=== PATIENT | female | born 1935 | race Caucasian/White ===

== ENCOUNTER 2016-10-07 13:35 | Observation (INO) | payer OTHER ==
[2016-10-07] MEDS ORDERED: ONDANSETRON HCL 4 MG/2 ML VIAL ONE ×2 (13:59→15:08)
[2016-10-07] MEDS ORDERED: HYDROmorphone HCL 1 MG/ML SYR ONE (14:16)
[2016-10-07] MEDS ORDERED: HOME MEDICATION LIST NEEDED 1 EA EACH MC ONE (14:31)
--- NOTE | 2016-10-07 14:36 | RADIOLOGY REPORT ---
HISTORY: COMPARISON: None. FINDINGS: Frontal view of the chest was performed. Heart size and mediastinal contours are within normal limits given the lordotic position. There is mi nimal left basal atelectasis, but no infiltrate, effusion or edema. IMPRESSION: Minimal left basilar atelectasis without edema, infiltrates or effusions. Final Electronic Signature: This report was electronically signed by Rg Hewitt MD on 10/07/2016 2 :33 PM. mary /
[2016-10-07] MEDS ORDERED: ONDANSETRON HCL 4 MG/2 ML VIAL IV PRN (14:40)
[2016-10-07 14:51] LABS: INR 1.2
[2016-10-07] MEDS ORDERED: NORMAL SALINE 1,000 ML IV SCH (15:00)
[2016-10-07] MEDS ORDERED: HYDROmorphone HCL 1 MG/ML SYR IV PRN (15:45)
[2016-10-07] MEDS ORDERED: LACTATED RINGERS 1,000 ML IV SCH (16:00)
--- NOTE | 2016-10-07 16:00 | ER NURSING DOCUMENTATION ---
Nurse's Notes [facility] Name:Christina Null Age:80 yrs Sex:Female :1935 Arrival Date:10/07/2016 Time:13:35 Bed3 Private MD: Diagnosis:Cholecystitis with Cholelithiasis w/o Obstruction Presentation: 10/07 13:43 Acuity: CARL 3 ke 13:55 Presenting complaint: Patient states: Began feeling sick during the night. Emesis x4, sj Pain under right breast radiating around to back. From Dr. Aleman's office with positive ultrasound for cholelithiasis. Transition of care: patient was received from another setting of care (ambulatory primary care physician practice). Notified ED Physician of patient's arrival and CC Dr. Pereyra notified. 13:55 Method Of Arrival: Wheelchair sj Triage Assessment: 13:58 General: Appears uncomfortable, Behavior is cooperative, pleasant. Pain: Complains of sj pain in under right breast Pain radiates to right subscapular area Pain currently is 5 out of 10 on a pain scale. Pain began last night. Neuro: Level of Consciousness is awake, alert, Oriented to person, place, time, event. Cardiovascular: Capillary refill < 3 seconds Chest pain is denied. Respiratory: Airway is patent Trachea midline Respiratory effort is even, unlabored, Respiratory pattern is regular. Historical: - Allergies: No known drug Allergies; - Home Meds: 1. aspirin 81 mg oral tab 1 tab once daily 2. amlodipine oral - PMHx: Hypertension; blood clots; - PSHx: Appendectomy; cataract surgery; - Tetanus: unknown. - Ebola Screening: : Patient negative for fever greater than or equal to 101.5 degrees Fahrenheit, and additional compatible Ebola Virus Disease symptoms. Patient denies exposure to infectious person. Patient denies travel to an Ebola-affected area in the 21 days before illness onset. No symptoms or risks identified at this time. . - Immunization history: Pneumococcal vaccine is up to date, Flu Vaccine < 1 year. - Social history: Smoking status: Patient states was never smoker of tobacco. Patient uses alcohol only on a social basis. Screenin:38 Infectious Disease Risk None. Abuse screen: Denies threats or abuse. Denies injuries sj from another. Nutritional screening: No deficits noted. Assessment: 14:37 See Triage Assessment done by same RN. Vital Signs: 14:00 BP 183 / 71; Pulse 53; Resp 20; Temp 97.6(O); Pulse Ox 97% on R/A; Weight 62.14 kg; sj Height 5 ft. 2 in. (157.48 cm); Pain 5/10; 14:15 BP 165 / 88; Pulse 61; Resp 11; Pulse Ox 82% on R/A; sj 14:30 BP 174 / 87; Pulse 61; Resp 10; Pulse Ox 94% on 1 lpm NC; Pain 2/10; sj 14:45 BP 178 / 76; Pulse 56; Resp 16; Pulse Ox 93% on 1 lpm NC; sj 15:00 BP 174 / 84; Pulse 70; Resp 14; Pulse Ox 92% on 1 lpm NC; sj 15:15 BP 180 / 85; Pulse 60; Resp 16; Pulse Ox 92% on 1 lpm NC; sj 15:30 BP 162 / 77; Pulse 67; Resp 16; Pulse Ox 87% on R/A; Pain 1/10; sj 15:30 Pulse Ox 95% 1 lpm ; sj 14:00 Body Mass Index 25.06 (62.14 kg, 157.48 cm) [place] Coma Score: 14:50 Eye Response: spontaneous(4). Verbal Response: oriented(5). Motor Response: obeys cd commands(6). Total: 15. ED Course: 13:36 Patient arrived in ED. cj 13:43 Triage completed. ke 13:55 Desirae Irby is Primary Nurse. sj 14:06 Kevin Pereyra MD is Attending Physician. cd 14:18 Desirae Irby is Primary Nurse. sj 14:31 Port Xray Completed. annabella 14:38 Inserted peripheral IV: 20 gauge in left antecubital area and blood collected. Oxygen Oxygen administration via nasal cannula @ 1L/min. 14:38 Valuables Patient has correct armband on for positive identification. Placed in gown. Bed in low position. Call light in reach. Side rails up X2. Pulse Ox - RN Monitoring Only NIBP On - RN Monitoring Only. Warm blanket given. 15:01 James Ramirez MD is Admitting Physician. cd Administered Medications: 14:00 Drug: Zofran 4 mg; Route: IVP; Infused Over: 2 mins; Site: right antecubital; sj 14:37 Follow up: Response: Nausea is decreased sj 14:10 Drug: Dilaudid 0.5 mg; Route: IVP; Site: right antecubital; sj 14:37 Follow up: Response: Pain is decreased sj 14:15 Drug: NS 0.9% 1000 ml; Route: IV; Rate: bolus; Site: right antecubital; sj 14:30 Follow up: IV Status: Completed infusion; IV Intake: 1000ml sj 14:45 Drug: NS 0.9% 1000 ml; Route: IV; Rate: 84 ml/hr; Site: right antecubital; sj 15:58 Follow up: Urine output 50 ml; IV Intake: 120ml sj 15:58 Follow up: IV Status: Infusion continued upon admission sj 15:00 Drug: Zofran 4 mg; Route: IVP; Infused Over: 2 mins; Site: right antecubital; sj 15:40 Follow up: Response: Nausea is decreased sj Intake: 14:30 IV: 1000ml; Total: 1000ml. sj 15:58 IV: 120ml; Total: 1120ml. sj Output: 15:58 Urine: 50ml; Total: 50ml. Outcome: 15:01 Decision to Admit by Provider. cd 15:55 Admitted to Med/surg accompanied by nurse, via stretcher, with oxygen. sj 15:55 Condition: improved 15:55 Instructed on need to admit Demonstrated understanding of instructions. 15:59 Patient left the ED. Signatures: Kevin Pereyra MD MD cd Abbott, Glenda Alejandre RN RN ke Jones, Carissa cj Janzen, Sarah
--- NOTE | 2016-10-07 16:00 | ER PHYSICIAN DOCUMENTATION ---
Physician Documentation [facility] Name:Christina Null Age:80 yrs Sex:Female :1935 Arrival Date:10/07/2016 Time:13:35 Bed3 Private MD: Kevin Escoto Disposition: 10/07/16 15:01 Admit ordered for James Ramirez. Preliminary diagnosis is Cholecystitis with Cholelithiasis w/o Obstruction. - Bed requested for Medical/Surgical. - Condition is Fair. - Problem is new. - Symptoms have improved. 23 HR OBS Yes HPI: 10/07 13:40 This 80 yrs old Female presents to ER via Wheelchair with complaints of RUQ cd Abdominal Pain. 13:40 The patient presents with abdominal pain in the right upper quadrant. Onset: The cd symptoms/episode began/occurred acutely, last night. The symptoms do not radiate. Associated signs and symptoms: Pertinent positives: nausea, vomiting, Pertinent negatives: diarrhea, fever. The symptoms are described as constant, crampy. Severity of pain: At its worst the pain was moderate in the emergency department the pain has improved moderately. The patient has not experienced similar symptoms in the past. The patient has been recently seen by a physician: Dr. Aleman, an wound care center consultant, at a clinic, earlier today, with similar presenting complaints, and apparently given a diagnosis of Cholelithiasis and Cholecystitis, lab tests were done, an ultrasound was done, was given a prescription for an antiemetic, and was sent to the [facility] Emergency Department for further evaluation. Historical: - Allergies: No known drug Allergies; - Home Meds: 1. aspirin 81 mg oral tab 1 tab once daily 2. amlodipine oral - PMHx: Hypertension; blood clots; - PSHx: Appendectomy; cataract surgery; - Tetanus: unknown. - Ebola Screening: : Patient negative for fever greater than or equal to 101.5 degrees Fahrenheit, and additional compatible Ebola Virus Disease symptoms. Patient denies exposure to infectious person. Patient denies travel to an Ebola-affected area in the 21 days before illness onset. No symptoms or risks identified at this time. . - Immunization history: Pneumococcal vaccine is up to date, Flu Vaccine < 1 year. - Social history: Smoking status: Patient states was never smoker of tobacco. Patient uses alcohol only on a social basis. ROS: 14:00 Cardiovascular: Negative for chest pain, palpitations, edema and pleuritic pain. cd Respiratory: Negative for shortness of breath, dyspnea on exertion, cough, sputum production, wheezing, hemoptysis and pleuritic chest pain. Back: Negative for injury, pain or muscle spasms. 14:00 : Negative for injury, bleeding, discharge, dysuria, frequency, urgency and swelling. cd 14:00 Constitutional: Positive for poor PO intake, Negative for chills, fever. 14:00 Abdomen/GI: Positive for abdominal pain, nausea, vomiting, anorexia, Negative for diarrhea, abdominal distension, hematemesis, black/tarry stool, rectal bleeding. 14:00 All other systems are negative. Exam: ENT: Nares patent. No nasal discharge, no septal abnormalities noted. Tympanic membranes are normal and external auditory canals are clear. Oropharynx with no redness, swelling, or masses, exudates, or evidence of obstruction, uvula midline. Mucous membranes moist. Cardiovascular: Regular rate and rhythm with a normal S1 and S2. No gallops, murmurs, or rubs. Normal PMI, no JVD. No pulse deficits. Respiratory: Lungs have equal breath sounds bilaterally, clear to auscultation and percussion. No rales, rhonchi or wheezes noted. No increased work of breathing, no retractions or nasal flaring. Back: No spinal tenderness. No costovertebral tenderness. Full range of motion. Skin: Warm, dry with normal turgor. Normal color with no rashes, no lesions, and no evidence of cellulitis. MS/ Extremity: Pulses equal, no cyanosis. Neurovascular intact. Full, normal range of motion. 14:50 Neuro: Awake and alert, GCS 15, oriented to person, place, time, and situation. cd Cranial nerves II-XII grossly intact. Motor strength 5/5 in all extremities. Sensory grossly intact. Cerebellar exam normal. Normal gait. 14:50 Constitutional: The patient appears alert, awake, non-diaphoretic, non-toxic, well developed, well nourished, in obvious distress, mildly distressed. 14:50 Abdomen/GI: Inspection: abdomen appears normal, Bowel sounds: diminished, Palpation: moderate abdominal tenderness, in the right upper quadrant, mass, is not appreciated, rebound tenderness, is not appreciated, voluntary guarding, is not appreciated, involuntary guarding, is not appreciated, no appreciated organomegaly, Indicators: Jaimes's sign is positive. Vital Signs: 14:00 BP 183 / 71; Pulse 53; Resp 20; Temp 97.6(O); Pulse Ox 97% on R/A; Weight 62.14 kg; sj Height 5 ft. 2 in. (157.48 cm); Pain 5/10; 14:15 BP 165 / 88; Pulse 61; Resp 11; Pulse Ox 82% on R/A; sj 14:30 BP 174 / 87; Pulse 61; Resp 10; Pulse Ox 94% on 1 lpm NC; Pain 2/10; sj 14:45 BP 178 / 76; Pulse 56; Resp 16; Pulse Ox 93% on 1 lpm NC; sj 15:00 BP 174 / 84; Pulse 70; Resp 14; Pulse Ox 92% on 1 lpm NC; sj 15:15 BP 180 / 85; Pulse 60; Resp 16; Pulse Ox 92% on 1 lpm NC; sj 15:30 BP 162 / 77; Pulse 67; Resp 16; Pulse Ox 87% on R/A; Pain 1/10; sj 15:30 Pulse Ox 95% 1 lpm ; sj 14:00 Body Mass Index 25.06 (62.14 kg, 157.48 cm) [place] Coma Score: 14:50 Eye Response: spontaneous(4). Verbal Response: oriented(5). Motor Response: obeys cd commands(6). Total: 15. MDM: 13:42 Data interpreted: Pulse oximetry: on room air is 94 %. Interpretation: normal. cd 14:06 Patient medically screened. cd 14:30 Data reviewed: vital signs, nurses notes, old medical records, lab test result(s), EKG, cd radiologic studies, plain films, ultrasound, and as a result, I will admit patient, initiate a consult, with a general surgeon, from a [facility], administer IV fluids, NS bolus, NS maintenence, prescribe pain medication, Dilaudid. 14:40 Counseling: I had a detailed discussion with the patient and/or guardian regarding: the cd historical points, exam findings, and any diagnostic results supporting the discharge/admit diagnosis, lab results, radiology results, the need for further work-up and treatment in the hospital. Response to treatment: the patient's symptoms have markedly improved after treatment, and as a result, I will admit patient. 14:45 ECG:. Physician consultation: Ryder Butts MD was called at 14:45, was contacted at cd 14:45, regarding admission, to the floor, consult, patient's condition, need to come to ED to see patient, and will see patient in ED, shortly, would like consultation with Dr. [facility], Dr. James Ramirez was consulted for the Medical Care of the patient. Admission orders: after a detailed discussion of the patient's condition and case, the admit orders are written by me. 14:53 Differential diagnosis: cholecystitis, Cholelithiasis. 10/07 14:52 Order name: PROTIME/INR; Complete Time: 14:53 EDMS 10/07 14:52 Interpretation: Normal. 10/07 14:37 Order name: CHEST; SING[place] [id number]; Complete Time: 14:52 EDMS 10/07 14:52 Interpretation: Normal: Please see report. 10/07 14:15 Order name: EKG - 12 Lead; Complete Time: 14:37 cd EC:34 Rate is 63 beats/min. Rhythm is regular. QRS [place] is Normal. [place] interval is normal. QRS cd interval is normal. QT interval is normal. No Q waves. T waves are Normal. No ST changes noted. Clinical impression: LVH and No evidence of ischemia. Interpreted by me. Dispensed Medications: 14:00 Drug: Zofran 4 mg; Route: IVP; Infused Over: 2 mins; Site: right antecubital; sj 14:37 Follow up: Response: Nausea is decreased sj 14:10 Drug: Dilaudid 0.5 mg; Route: IVP; Site: right antecubital; sj 14:37 Follow up: Response: Pain is decreased sj 14:15 Drug: NS 0.9% 1000 ml; Route: IV; Rate: bolus; Site: right antecubital; sj 14:30 Follow up: IV Status: Completed infusion; IV Intake: 1000ml sj 14:45 Drug: NS 0.9% 1000 ml; Route: IV; Rate: 84 ml/hr; Site: right antecubital; sj 15:58 Follow up: Urine output 50 ml; IV Intake: 120ml sj 15:58 Follow up: IV Status: Infusion continued upon admission sj 15:00 Drug: Zofran 4 mg; Route: IVP; Infused Over: 2 mins; Site: right antecubital; sj 15:40 Follow up: Response: Nausea is decreased sj Signatures: Kevin Pereyra MD MD cd Janzen, Sarah sj
[2016-10-07] MEDS: ONDANSETRON HCL 4 MG/2 ML VIAL IV PRN (16:24)
[2016-10-07] MEDS: CEFAZOLIN SODIUM 1 GM in NORMAL SALINE MINI-BAG+ 100 ML IV SCH (16:25)
[2016-10-07] MEDS: HYDROmorphone HCL 1 MG/ML SYR IV PRN ×2 (16:52→22:18)
[2016-10-07] MEDS ORDERED: ENALAPRILAT DIHYDRATE 1.25 MG/ML VIAL IV PRN (17:40)
[2016-10-07] MEDS: ENOXAPARIN SODIUM 30 MG/0.3 ML SYR SUBCUT SCH (18:11)
[2016-10-07] MEDS: amLODIPine BESYLATE 5 MG TABLET PO SCH (18:18)
[2016-10-07] MEDS: INSULIN LISPRO 100 UNIT/ML ML SUBCUT SCH (20:37)
[2016-10-08] MEDS: CEFAZOLIN SODIUM 1 GM in NORMAL SALINE MINI-BAG+ 100 ML IV SCH ×2 (00:41→16:13)
[2016-10-08] MEDS: ONDANSETRON HCL 4 MG/2 ML VIAL IV PRN (01:34)
--- NOTE | 2016-10-08 02:39 | CONSULTATION ---
DATE OF ADMISSION: 10/07/16 CHIEF COMPLAINT: Abdominal pain. HISTORY OF PRESENT ILLNESS: This is an 80-year-old female who went to bed last night feeling fine. She developed a pain in the epigastric right upper quadrant and right flank region that woke her up from sleep and persisted throughout the night. She also noted abdominal bloating. She was nauseous as well. When the pain did not emerald she was seen in the clinic. Her workup in the clinic led to an ultrasound which showed gallstone which was thought to be a single large one in the neck of her gallbladder. There was also some fluid and edema around the gallbladder. It was felt she had acute cholecystitis so she was sent to the emergency room and admitted to the hospital. She in retrospect thinks she may have had mild pains of this nature in the past but never thought that it was her gallbladder. Prior to this she had otherwise been feeling fine. REVIEW OF SYSTEMS GENERAL: She had been feeling fine the last few weeks. RESPIRATORY: She is a nonsmoker. She has no asthma. She does give a history of having had a pulmonary embolus a few years ago. CARDIAC: She does have hypertension. She denies chest pain. She denies previous [place]. GI: She denies chronic abdominal pain. She has had colonoscopy and a few polyps. 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 She was told she had an ulcer at that time but it sounded more consistent with stress gastritis. : She has been followed for an ovarian cyst and was worked up for possible ovarian cancer. This was all while she was in the [email or web address] system. ENDOCRINE: She denies diabetes or thyroid disorder. HEMATOLOGIC: She has had a DVT in her left arm and in her left leg as well as a pulmonary embolus. PSYCHIATRIC: No history of depression or anxiety. PAST SURGICAL HISTORY 1. She has undergone a breast biopsy when she was in her 20s. 2. She 3 years ago had a laparoscopic appendectomy. 3. She has undergone bilateral cataract extractions. PAST MEDICAL HISTORY: Include 1. Arthritis. 2. Osteopenia. 3. History of skin cancer. 4. Hyperlipidemia which is mild. 5. History of DVT and PE. 6. Hypertension. ALLERGIES TO MEDICATIONS: None. CURRENT MEDICATIONS Amlodipine 5 mg tablet daily. Baby aspirin 81 mg daily. CoQ10 10 mg tablet daily. Fish oil daily. Glucosamine daily. Multivitamin daily. Potassium 75 mg daily. Turmeric daily. Tylenol. SOCIAL HISTORY: She lives in [facility] with her . She is a nonsmoker and a daily moderate alcohol user. FAMILY HISTORY: Unremarkable for gallbladder disease. Her mother had breast cancer. Father had emphysema and was a smoker as well as heart disease. PHYSICAL EXAMINATION VITAL SIGNS: Temp 36.9, blood pressure 167/73, pulse 57, and she has 16 respirations with a 95% saturation on room air. GENERAL: Pleasant female who at this time is in no acute distress. HEENT: Shows neck with no masses, no nodularity. I did not hear any carotid bruits. There is no supraclavicular adenopathy. HEART: Occasionally irregular with a 3/6 holosystolic murmur. I heard this best at the right and left second intercostal spaces but I could hear it throughout the precordium. LUNGS: Clear bilaterally. ABDOMEN: Well healed laparoscopy incisions from her appendectomy. She has an umbilical hernia present in her umbilical trocar site. The abdomen has hypoactive bowel sounds and seems somewhat distended. She has minimal tenderness at this time to palpation. EXTREMITIES: She has no ankle edema noted. She had good dorsalis pedis pulses bilaterally. NEUROLOGIC: She is alert and oriented to person, place and time. No gross motor or sensory deficits are noted. LABS: Show white count in the normal range as is her H&H. Her chemistries are normal as well with the exception of a glucose of 150. LFTs are in the normal range. IMAGING: Her chest x-ray shows some minimal left atelectasis with no edema or infiltrates. Her ultrasound showed large stone in the neck of the gallbladder with slight wall thickening and edema. No common duct dilation was noted. IMPRESSION: Acute cholecystitis. RECOMMENDATION: Proceed with laparoscopic cholecystectomy. She will be seen by Dr. Raimrez concerning her age and hypertension. Her murmur is also new as compared to her previous records at [place] that I could find. My plan will be to start her on IV Ancef tonight for diagnosis of acute cholecystitis and proceed with laparoscopic cholecystectomy tomorrow. She can hopefully be discharged either tomorrow afternoon or Tuesday. LAUREN
--- NOTE | 2016-10-08 03:19 | HISTORY & PHYSICAL ---
DATE OF ADMISSION: 10/07/16 REQUESTING PHYSICIAN: Dr. Pereyra from the emergency room. CONSULTATION: Dr. Butts for acute cholecystitis and cholecystectomy. PRIMARY CARE PHYSICIAN: Dr. Anthony. HISTORY OF PRESENT ILLNESS: Briefly, the patient is an 80-year-old lady with past medical history of DVT and PE, hypertension, and dyslipidemia, with most recent lipid profile showing a total cholesterol of 215 but an HDL of 92 and LDL of 102. She had a history of CT angio of chest that demonstrated a PE as well as aortic atherosclerotic disease and query an elevated coronary calcium score and then underwent stress testing around 2004 at [facility] that was reported as normal. Prior surgical history includes an appendectomy in 2013 that was uncomplicated. She presented to clinic and then subsequently to the emergency room today with acute onset of nausea and right upper quadrant pain that occurred overnight and worsened throughout the morning and was associated with emesis. She had no fever, no cough, cold, congestion, no diarrhea or change in bowel habits. She described the pain as constant and crampy, made worse when she tried to eat or drink something. She presented to clinic where she underwent lab tests that showed a normal white count of 10.2 with 61% neutrophils, 36% lymphocytes, hemoglobin of 15.7, MCV of 91 with platelet count of 163. She also had a CMP with normal electrolytes, kidney function with BUN of 14 and creatinine of 0.6 and normal LFTs and a glucose of 150. This was nonfasting. A lipase that was 76 and an amylase that was 66. She then underwent an abdominal ultrasound that demonstrated cholelithiasis with evidence of cholecystitis with the gallbladder wall being thickened at 4-5 mm and a 2.3 cm stone at the neck of the gallbladder although no common bile duct dilatation was noted and the liver was heterogenous but otherwise unremarkable. She also had an incidental 3.2 cm simple right renal cyst. Because of this and her prior care being at [facility] in [place] with Dr. Laurent, the patient was sent by Dr. Aleman and Renetta Thomas to the emergency room for possible transfer to a [facility] facility. Dr. Pereyra from the emergency room then discussed the case Dr. Butts for possible cholecystectomy tomorrow morning with admission to my service overnight for preoperative consultation prior to surgery. Her chest x-ray in the emergency room showed no acute changes or infiltrates. Her EKG was sinus rhythm with left ventricular hypertrophy but no acute ST-T wave changes of ischemia. Her labs were as described above and since being seen in the emergency room she has received IV fluids and Zofran with marked improvement in her abdominal discomfort. She also has been seen by Dr. Butts with plans for laparoscopic cholecystectomy and possible intraoperative cholangiography if warranted. PAST MEDICAL HISTORY: Noted for 1. Prior colonic polyps though colonoscopy in 2012 was unremarkable and she is due for repeat colonoscopy this year. 2. She has a history of diverticulosis but no prior diverticulitis. 3. A history of DVT initially in her left upper extremity in 1993 which she states was related to exertion in moving lifting boxes and received anticoagulation for 6 weeks with resolution. 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 This was related to what she believes to travel initially to [place] and then [place] prior to returning to the [place] and she presented with shortness of breath and left lower extremity swelling. She did not undergo workup for thrombophilia but at that time underwent the CT testing that demonstrated PE as well as a coronary artery calcification and aortic atherosclerotic disease. After this study, she also underwent stress testing which was reported as negative and appeared to be a nuclear stress test by her history and she received an additional 3 months of anticoagulation with warfarin and then discontinued and has had no further shortness of breath or swelling. 4. She has a history of hyperglycemia with impaired glucose tolerance. Her fasting glucose is 108, dyslipidemia though with markedly favorable ratios and not currently in treatment, and hypertension well controlled previously on Norvasc. 5. She has osteopenia and chronic osteoarthritis of her knees. 6. She is status post appendectomy in 2013 without issue with anesthesia nor bleeding or clotting. 7. Prior cataract surgeries. ALLERGIES: No known drug allergies. FAMILY HISTORY: She has a family history of breast cancer in her mother and emphysema in her father. No family history of clotting disorders, anesthesia issues or heart disease. SOCIAL HISTORY: She drinks a glass of wine or a martini several times per week. If she skips a night or two she does not have withdrawal symptoms. She lives with her and is a life long nonsmoker. CURRENT PRESCRIPTION MEDICATIONS: Include Norvasc 5 mg per day. Aspirin 81 mg per day. She also takes supplements including turmeric, potassium, multivitamin, glucosamine, fish oil and Coenzyme Q, as well vitamin D replacement. REVIEW OF SYSTEMS: Per HPI. Regarding preoperative evaluation, she has good exercise tolerance, walks briskly several miles 3-4 days per week while walking her dog. She is able to climb a fairly steep hill from her mailboxes to her home near [facility] without chest pain, shortness of breath or palpitation , as well as climb several flights of stairs not limited by shortness of breath or chest pain or palpitations, and equivalent to or greater than 4 metabolic equivalence. She has tolerated general anesthesia previously with no difficulty. She does not have a family history of bleeding or clotting issues though she does carry a diagnosis or has had diagnosis of DVT and PE. These are both provoked. PHYSICAL EXAMINATION VITAL SIGNS: Current blood pressure is in the 160s/80s, heart rate in the high 50s to low 60s, respiratory rate 12. She is satting 93% on room air, and temp was 97.4. GENERAL: She is pleasant, no apparent distress. No jaundice, anemia, cyanosis , clubbing or lymphadenopathy. NECK: Supple. HEENT: Oral mucosa is moist. Carotid upstrokes are brisk and no bruits are appreciated in her neck. CARDIAC: Shows S1, S2 with murmur in the right upper sternal border also heard over Erbs point in lower intensity and systolic in nature, appears to be decrescendo. No further radiation specifically to the carotids and again with brisk carotid upstroke. This is suggestive of aortic sclerosis though may be aortic stenosis with atherosclerotic heart disease. There is no gallop or other adventitial cardiac sounds. RESPIRATORY: Shows good air entry to the bases and is clear. ABDOMEN: Soft, distended, and tender only in the right upper quadrant with positive Jaimes finding. No rebound and bowel sounds are present. She has no edema in her lower extremities and 2+ dorsalis pedis pulses. LABORATORY DATA: As described above including chest x-ray which shows no infiltrate and normal cardiomediastinal silhouette and EKG with normal sinus rhythm with probable left ventricular hypertrophy. ASSESSMENT 1. Preoperative internal medicine assessment. The patient is risk optimized for anesthesia review. Would add Vasotec to her usual Norvasc with parameters for blood pressure control. Have held her aspirin and with her prior DVT history, recommend Lovenox perioperatively. As well consideration of anticoagulation for several weeks postop though with both episodes of DVT and PE being provoked with early mobilization and resuming aspirin as well as use of DOTTY hose and SCDs while in bed during hospitalization, this should be sufficient. 2. Hypertension. Will continue her usual Norvasc, give a dose tonight as it appears she missed her dose this morning, and use p.r.n. IV Vasotec with goals to keep her blood pressure below 140. 3. Murmur suggestive of aortic sclerosis with possible stenosis with atherosclerotic coronary disease preserving her carotid upstroke. At some point an echocardiogram may be prudent though this does not need to be done prior to surgery and have requested her old records from [facility] including for prior stress test. Initially she felt this was in the mid 1999s though surgery for appendectomy was around 2013 and the PE was around 2011. 4. Hyperglycemia with a history of impaired glucose tolerance. This will likely be exacerbated with stress from her acute cholecystitis. Would recommend an insulin sliding scale and q.a.c. Accu-Cheks. 5. Acute cholecystitis. The patient has been started on antibiotics. Will be n.p.o. after midnight with tentative plan for Dr. Butts to perform a laparoscopic cholecystectomy in the morning. LAUREN
[2016-10-08] MEDS: INSULIN LISPRO 100 UNIT/ML ML SUBCUT SCH ×3 (06:07→20:35)
[2016-10-08] MEDS ORDERED: ONDANSETRON HCL 4 MG/2 ML VIAL ONE (07:31)
[2016-10-08] MEDS ORDERED: DEXAMETHASONE 10 MG/ML VIAL ONE (07:31)
[2016-10-08] MEDS ORDERED: LIDOCAINE HCL 4% 160 MG/4 ML KIT ONE (07:31)
[2016-10-08] MEDS ORDERED: FENTANYL 250 MCG/5 ML VIAL ONE (07:31)
[2016-10-08] MEDS ORDERED: METOCLOPRAMIDE HCL 10 MG/2 ML VIAL ONE (07:31)
[2016-10-08] MEDS ORDERED: SUCCINYLCHOLINE CHLORIDE 200 MG/10 ML VIAL ONE (07:32)
[2016-10-08] MEDS ORDERED: ROCURONIUM BROMIDE 50 MG/5 ML VIAL IV ONE (07:32)
[2016-10-08] MEDS ORDERED: BUPIVACAINE HCL/PF 0.25% 10 ML VIAL INJ ONE ×2 (07:33→07:37)
[2016-10-08] MEDS ORDERED: CEFAZOLIN SODIUM 1 GM/10 ML VIAL ONE (07:59)
[2016-10-08] MEDS ORDERED: NEOSTIGMINE METHYLSULFATE 10 MG/10 ML VIAL ONE (08:13)
[2016-10-08] MEDS ORDERED: GLYCOPYRROLATE 0.2 MG/ML VIAL ONE (08:13)
[2016-10-08] MEDS ORDERED: DESFLURANE 240 ML BTL INHALATION ONE (08:38)
[2016-10-08] MEDS ORDERED: NORMAL SALINE FLUSH 50 ML ONE (09:07)
[2016-10-08] MEDS ORDERED: IOHEXOL 240 MG/ML 50 ML VIAL IV ONE (09:07)
[2016-10-08] MEDS ORDERED: HEMOSTATIC MATRIX 5 ML SYR MISC ONE (09:42)
--- NOTE | 2016-10-08 12:20 | PROCEDURE NOTE: Gen Surgery ---
General Surgery Procedure Note - Date of Encounter Date of Encounter: 10/08/16 - Brief Operative Note (1) Acute cholangitis due to calculus of bile duct with obstruction Date of procedure: 10/08/16 Pre-Op Diagnosis: Acute cholycytitis Post-op diagnosis: same Procedure: Lap. choly with IOC Anesthesia Type: General Physician: KEHINDE REESE Estimated Blood Loss: 100 Pathology: sent X-ray taken: Yes Images viewed by surgeon: Yes Images viewed by radiologist: No Sponge and instrument counts: correct Condition: stable Disposition: floor Narrative: Acutely inflamed gallbladder with a large 2cm by 3cm gallstone in the infundibulum. During the dissection there was a 1mm tear in the cystic duct near the common duct junction. A cholangiogram confirmed this. I could not get flow into the duodenum on cholangiography. The cystic duct was closed with a endoloop flush with the common duct. Because of the tenuous closure a JUAN drain was placed. The patient has several adhesions to the gallbladder from the omentum and colonic mesentery. She had omental adhesions to the right upper quadrant ant. abdominal wall. She had a 2cm incisional hernia in her umbilicus from her appendectomy.
[2016-10-08] MEDS ORDERED: LACTATED RINGERS 1,000 ML IV SCH (13:28)
[2016-10-08] MEDS ORDERED: ACETAMINOPHEN 325 MG TABLET PO PRN (13:28)
[2016-10-08] MEDS ORDERED: HOME MEDICATION LIST NEEDED 1 EA EACH MC ONE (13:28)
[2016-10-08] MEDS ORDERED: ONDANSETRON HCL 4 MG/2 ML VIAL IV PRN (13:28)
[2016-10-08] MEDS ORDERED: ENALAPRILAT DIHYDRATE 1.25 MG/ML VIAL IV PRN (13:28)
--- NOTE | 2016-10-08 13:39 | PROGRESS NOTE: IM APSO ---
Assessment and Plan - Date of Encounter Date of Encounter: 10/08/16 (1) Acute cholangitis due to calculus of bile duct with obstruction Status: Acute Assessment and plan: now s/p lab suresh, biliary drain in place, on antibiotics. surgical management per Dr. Butts, tolerated anesthesia. With history of DVT/PE, Lovenox 30-40mg/ day for 2 weeks and mobile, TEDS and SCD's in bed. Pulmonary toilet/IS Current Visit: Yes (2) History of venous thromboembolism Status: Chronic Assessment and plan: with surgery, plan for lovenox for 2 weeks Current Visit: No (3) Hypertension Status: Chronic Assessment and plan: continue Norvasc, PRN vasotec Current Visit: No (4) Murmur Status: Chronic Assessment and plan: likely aortic sclerosis, possible stenosis, may warrant echo as outpatient Current Visit: No - Time Spent With Patient Total time spent with greater than 50% in coordination of care (as documented) at patient's floor/unit and/or counseling patient: IM: PN Subjective General: other (80 yo lady with h/o DVT/PE, HTN, Dyslipidemia, now s/p lab suresh with CBD trauma and JUAN in place. BP better controlled nocte. Dr. Ram to f/u medical issues on weekend. Old records still pending.), no fatigue, no confusion, no good appetite, no diaphoresis, no fever, no chills Cardiovascular: no chest pain, no chest pressure, no palpitations Respiratory: no cough, no sputum, no SOB Gastrointestinal: abdominal pain, bloating, no nausea, no vomiting, no diarrhea , no constipation IM: PN Objective Exam - I&O/Vital Signs I&O: Intake & Output 10/07/16 10/08/16 10/08/16 21:59 05:59 13:59 Intake Total 036 99 6158 Output Total 150 500 130 Balance 292 -450 1570 Weight 63.645 kg 63.645 kg Intake: IV 322 1700 Right Antecubital 322 1700 Oral 120 50 0 Output: Drainage 30 Right Abdomen 30 Urine 150 500 0 Other 100 Other: Urine Appearance Clear Clear Urine Color Yellow Yellow Voiding Method Toilet Toilet # Voids 2 Vital Signs: Last Vital Signs Temp 37.1 C 10/08/16 12:50 Pulse 73 10/08/16 12:50 Resp 14 10/08/16 12:50 BP 135/70 10/08/16 12:50 Pulse Ox 93 10/08/16 12:50 Oxygen Flow Rate 2 Oxygen Delivery Method Nasal Cannula - Constitutional General appearance: Present: average body habitus - Head Head exam: Present: atraumatic - ENT ENT exam: Present: mucous membranes moist - Respiratory Respiratory exam: Present: CTAB - Cardiovascular Cardiovascular exam: Present: RRR, systolic murmur (rusb without radiation) - GI/Abdominal GI/Abdominal exam: Present: distended, soft - Extremities Exam Extremities exam: Absent: calf tenderness, edema - Lab Labs: Laboratory Last Values PT 16.3 sec (13.0-16.6) 10/07/16 14:15 INR 1.2 10/07/16 14:15 Quality Questions - VTE Prophylaxis Assessment VTE Present on Admission?: No Patient at risk for venous thromboembolism?: Yes VTE Risk Level: High Risk VTE Medical Contraindication: N/A-VTE Prophylaxis ordered (3) Hypertension Qualifiers: Hypertension type: essential hypertension Qualified Code(s): I10 - Essential (primary) hypertension
[2016-10-08] MEDS: ENOXAPARIN SODIUM 40 MG/0.4 ML SYR SUBCUT SCH (14:25)
--- NOTE | 2016-10-08 15:48 | OPERATIVE REPORT ---
DATE OF SURGERY: 10/08/16 SURGEON: Ryder Butts MD ANESTHESIA: General endotracheal (Cj Annia). PREOPERATIVE DIAGNOSIS: Acute cholecystitis. POSTOPERATIVE DIAGNOSES 1. Acute cholecystitis. 2. Umbilical incisional hernia. PROCEDURE PERFORMED 1. Laparoscopic cholecystectomy with intraoperative cholangiograms. 2. Repair of incisional umbilical hernia. FINDINGS: At the time of laparoscopy, the patient had a 2-3 cm hernia in the umbilicus. I presume this was from her previous laparoscopic appendectomy. This incision had to be enlarged to remove the gallstone which was 3-4 cm in size. The gallbladder was acutely inflamed and edematous. It was quite thickened, however, during dissection there was a 1 mm tear in the cystic duct near the cystic duct common duct junction. I therefore did a cholangiogram to confirm the anatomy. There was flow into the hepatic ducts as well as into the common duct. I did not get flow into the duodenum. I saw no sludge or small stones draining from this tear in the cystic duct. It seemed doubtful that there were stones and this was spasm in the ampulla. Attempts at closure of this defect with 4-0 Prolene were unsuccessful. I therefore ligated the duct flush with the common duct using an EndoLoop. Because of the tenuous closure and possibility of the sphincter spasm or stone, a Raj-Camara drain was placed in the region of the stump. The patient had multiple adhesions to the body of the gallbladder. She also had adhesions to the right upper quadrant anterior abdominal wall presumably from a previous appendicitis and appendectomy. SUMMARY: The patient was taken to the operating room and placed in the supine position. She was given the smooth induction of general anesthesia via the endotracheal tube. Her abdomen was prepped with a ChloraPrep solution. A time out was called and the correct patient, correct preoperative medications and correct procedure were verified. After 3 minutes time had elapsed, draping occurred. Local was instilled into the umbilical region. The skin was sharply incised. Dissection was carried down to the umbilical hernia. There was a large sac associated with this. The sac was partially opened and a 12 mm trocar was placed. The abdomen was then allowed to inflate. In the subxiphoid region, a 12 mm trocar was placed. There were adhesions of omentum to the right upper quadrant anterior abdominal wall. This was the area where I wanted to place the 5 mm trocars. These were taken down with the hook cautery at 30 celis of power. Once these adhesions were taken down two 5 mm incisions were made near the anterior axillary line and the trocar was placed under direct vision. Initially it was attempted to incise the gallbladder near the fundus. This was only partially successful therefore the gallbladder was retracted cephalad and the adhesions of surrounding omentum were carefully taken down. There were also duodenal adhesions to the body and infundibulum of the gallbladder. Eventually in the region of the infundibulum the stone could be found. A Ferreira type cholangiocatheter was used to aspirate the gallbladder to make it easier to work with. Approximately 60 mL of bile was able to be aspirated. Next, dissection was begun in the region of the infundibulum. Careful dissection was done bluntly. A Harmonic scalpel was used where appropriate. During this dissection what I felt was the cystic duct there was a 1 mm tear noted. The critical view was then obtained with blunt dissection and the Harmonic scalpel. The cystic artery was doubly clipped proximally with one clip placed distally and sharply divided. Next, the tear in the cystic duct was occluded with a right angle dissector held in place. An incision was made into the cystic duct after clipping it on the gallbladder side. A taut catheter was threaded and cholangiography was performed. There was flow into the cystic duct and into the hepatic ducts as well. No flow was obtained into the duodenum. There was a smooth taper but I could not get flow into the duodenum. Further attempts at cholangiography were abandoned. The cystic duct was then doubly clipped on the patients side and divided. The right angle catheter was removed. This still left the 1 mm defect in the region of the cystic duct/common duct junction. The gallbladder was then dissected out with the Harmonic scalpel and the hook cautery. Once completely removed it was placed in a specimen retrieval bag and pulled out and pulled out through the umbilical port site. Because of the large size of the stone which was judged to be 3-4 cm in size the skin incision and the fascial incisions had to be lengthened. The gallbladder was then able to be completely removed. Next, because of the large fascial defect the fascia was partially closed with a running 2-0 Prolene suture. This was tied down and a 12 mm trocar placed and the abdomen inflated again. The trocars were replaced. The subhepatic region was irrigated. Attempts were made at closure of the 1 mm defect with 4-0 Prolene. This was still causing some leakage. Therefore the stump of the cystic duct was encircled with a Vicryl mesh which was cinched down flush with the common duct. The area was irrigated and suctioned. No bile leakage was noted. Next, a Raj-Camara drain was pulled through one of the right side trocar sites and placed near the cystic duct stump. It was sewn to the skin with a 2-0 nylon suture. Floseal was placed on the edge of the liver where there had been a tear during the dissection. The abdomen was then allowed to deflate. The remaining fascia in the umbilical region was closed with a running 2-0 Prolene suture. A single suture of 2-0 PDS was placed in the subxiphoid fascial defect. The skin was closed with running subcuticular 4-0 Monocryl except in the umbilical region where a 4-0 nylon suture was used in a running fashion. Dressings were then applied, anesthesia was reversed and the patient was taken from the operating room to the recovery room. LAUREN
[2016-10-08 21:10] VITALS: O2SAT 92
[2016-10-08] MEDS: HYDROmorphone HCL 1 MG/ML SYR IV PRN (22:09)
[2016-10-09] MEDS: CEFAZOLIN SODIUM 1 GM in NORMAL SALINE MINI-BAG+ 100 ML IV SCH ×3 (00:29→09:20)
[2016-10-09] MEDS: HYDROmorphone HCL 1 MG/ML SYR IV PRN (02:30)
[2016-10-09] MEDS: INSULIN LISPRO 100 UNIT/ML ML SUBCUT SCH ×2 (03:27→07:59)
[2016-10-09] MEDS: amLODIPine BESYLATE 5 MG TABLET PO SCH (03:28)
[2016-10-09] MEDS: ENOXAPARIN SODIUM 30 MG/0.3 ML SYR SUBCUT SCH (03:28)
[2016-10-09 06:33] VITALS: BP 144/62; PULSE 81; RESP 15; TEMP 99.2
[2016-10-09 06:58] LABS: BASOPHIL# 0.1 X 10^3uL (0.0-0.1); BASOPHILS 0.4 % (0.0-2.0); HEMATOCRIT 37.8 % (36.0-48.0); HEMOGLOBIN 12.5 g/dL (12.0-16.0); LYMPHOCYTES# 3.2 X 10^3uL (0.8-3.8); MEAN CELL VOLUME 91.1 fL (80.0-100.0); MEAN CORPUSCULAR HEMOGLOBIN 30.1 pg (29.0-35.0); MEAN PLATELET VOLUME 12.2 fL (7.4-10.4); MONOCYTES 7.7 % (2.0-10.0); NEUTROPHILS 66.9 % (54.0-75.0); NEUTROPHILS# 8.4 X 10^3uL (2.6-6.7); PLATELET COUNT 122 X 10^3uL (130-440); RED BLOOD COUNT 4.15 X 10^6uL (4.20-6.10); RED CELL DISTRIBUTION WIDTH 12.9 % (11.5-14.5); WHITE BLOOD COUNT 12.7 X 10^3uL (3.9-10.7)
[2016-10-09 07:10] LABS: A/G RATIO 1.2; ALBUMIN 3.2 g/dL (3.5-5.0); ALKALINE PHOSPHATASE 42 U/L (38-126); ALT 59 U/L (9-52); AST 66 U/L (14-36); BILIRUBIN, TOTAL 0.9 mg/dL (0.2-1.3); BLOOD UREA NITROGEN 15 mg/dL (7-17); CALCIUM 8.4 mg/dL (8.4-10.2); CHLORIDE 106 mmol/L (98-107); CREATININE 0.8 mg/dL (0.5-1.0); GLUCOSE 116 mg/dL (70-100); POTASSIUM 3.9 mmol/L (3.5-5.1); SODIUM 139 mmol/L (137-145); TOTAL PROTEIN 5.9 g/dL (6.3-8.2)
[2016-10-09] MEDS ORDERED: amLODIPine BESYLATE 5 MG TABLET PO SCH (09:00)
--- NOTE | 2016-10-09 09:07 | DC SUMMARY: Gen Surgery Note ---
Discharge Summary: Surg/OB Provider: Date of Admission: 10/07/16 Admitting Provider: SALUD VEGAS Attending Provider: KEHINDE REESE MD Discharging Provider: KEHINDE REESE MD Primary Care Provider: Discharge Date: 10/09/16 - Diagnosis (1) Acute cholecystitis due to biliary calculus Status: Resolved (2) Postoperative ileus Status: Acute (3) History of venous thromboembolism Status: Chronic Hospital Course: Ms. MARY is a 80 year old female admitted with acute cholycystitis on 10/07/2016. She underwent surgery on 2016. She is tolerating a diet but has yet to pass flatus. She has hypoactive bowel sounds. She has also been hypoxic on room air. Her lungs are clear. Will discharge today with a JUAN drain in plass. Her cystic duct closure was concerning for a leak so the drain will be left in place the next few days. She will need home oxygen for low sats. She will also do 2 weeks of lovenox because of previous clotting issues. She will go home with tylenol and oxycodone for pain. Discharge - Patient/Caregiver Discharge Instructions Activity Level: No limits except for lifting over 20 pounds Diet: No limitations. Usually you will fill up fast so eat frequently in small amounts. Additional Instructions: Empty the drain tube and give me a rough estimate of the daily outputs. Overall discharge status: patient is progressing back to baseline Home Medications: Enoxaparin Sodium [LOVENOX 40mg/0.4mL*] 40 mg SUBCUT DAILY #13 syr Polyethylene Glycol 3350 [Miralax] 17 gm PO DAILY #255 gm oxyCODONE HCL IR [Oxy Ir*] 5 mg PO Q3H PRN #20 tablet PRN Reason: Pain, Severe Able To Take Po Gen Surgery: Discharge Exam - Latest Vital Signs and I&O Latest Vital Signs/I&O: Vital Signs Temp 37.3 C 10/09/16 06:30 Pulse 81 10/09/16 06:30 Resp 15 10/09/16 06:30 BP 144/62 10/09/16 06:30 Pulse Ox 92 10/09/16 06:30 Intake & Output 10/08/16 10/09/16 10/09/16 17:59 05:59 17:59 Intake Total 9577 700 9007 Output Total 130 930 Balance 1570 -10 1453 Weight 63.645 kg Intake: IV 9136 282 5924 Right Antecubital 3123 866 6479 Oral 0 400 Output: Drainage 30 30 Right Abdomen 30 30 Urine 0 900 Other 100 Other: Urine Appearance Clear Clear Urine Color Yellow Yellow Voiding Method Toilet Toilet # Voids 3 # Bowel Movements 0 - Exam General physical exam: no distress Respiratory exam: clear to auscultation Abdomen exam: bowel sounds (hypoactive), soft, distended, other (wounds ok. Drain with non bilious bloody output.) Discharge Summary Data - Medication History Medication History: Home Medications amLODIPine BESYLATE [Norvasc*] 5 mg PO DAILY 10/07/16 aspirin EC [Aspirin EC*] 81 mg PO HS 10/07/16 B Complex with Vitamin C [Vitamin B-Complex & C] 1 each PO DAILY 10/08/16 Cholecalciferol (Vitamin D3) [Vitamin D3] 2,000 unit PO DAILY 10/08/16 Co Q-10 [Co Q-10 50 mg Softgel] 1 each PO DAILY 10/08/16 Glucosamine/MSM/Chondroitin A [Glucosamine Chondroit MSM Tab] 1 each PO DAILY Ararat-3 Fatty Acids [Fish Oil] 1,000 mg PO DAILY 10/08/16 Potassium Gluconate [Potassium] 198 mg PO DAILY 10/08/16 Turmeric Root Extract [Turmeric] 500 mg PO DAILY 10/08/16 Inpatient Medications 10/08/16 13:28 Acetaminophen [Tylenol] 650 mg PO Q6H PRN Enalaprilat Dihydrate [Vasotec] 0.625 mg IV Q6H PRN Enoxaparin Sodium [Lovenox] 40 mg SUBCUT DAILY HYDROmorphone HCL [Dilaudid] 0.5 - 1 mg IV Q2H PRN Lactated Ringers [Lr 1000 ml Bag] 1,000 ml IV CONT Ondansetron HCl [Zofran] 4 mg IV Q4H PRN oxyCODONE HCL IR [Oxy Ir] 5 mg PO Q3H PRN 10/08/16 16:00 Cefazolin Sodium [Ancef] 1 gm Normal Saline Mini-Bag+ [Sodium Chloride 100 ml Mini-Bag Plus] 100 ml IV Q8H 10/08/16 17:00 Insulin Lispro [HumaLOG] See Protocol SUBCUT ACHS 10/09/16 09:00 amLODIPine BESYLATE [Norvasc] 5 mg PO DAILY Procedures and tests throughout hospitalization: Completed Lab Orders 10/09/16 06:15 CBC AUTO DIF, MDIF/RMOR IF IND [HEM] AMDRAW COMPREHENSIVE METABOLIC PANEL [CHEM] AMDRAW Pending Orders 10/07/16 14:31 Activity: BRP w/ Assist Only . Intake and Output QSHIFT I&O Oxygen by Nasal Cannula 2 L/MIN Telemetry monitoring CONTINUOUS TELE Titrate Oxygen TITRATE TO >90% 10/07/16 15:37 Change from Inpatient to Observation Routine 10/07/16 16:27 SCD's [Sequential Compression Device] WHILE IN BED 10/07/16 16:28 Anesthesia Type . Pre-op by anesthesia . 10/07/16 17:41 Obtain Outside Records ONCE 10/07/16 18:07 Finger Stick Blood Sugar ACHS FINGER STICK Hypoglycemia treatment... PER PROTOCOL 10/07/16 Dinner Clear Liquid [DIET] 10/08/16 10:00 CHOLANGIO/PANCREATOG: [place] [id number] [RAD] Routine FLUOROSCOPY, UP TO 1 [id number] [FLUORO] Routine 10/08/16 13:28 Admit: Observation Routine Dressing Change PRN Empty and compress JUAN Drain PRN Insert Diop Catheter - PRN PRN Titrate Oxygen TITRATE B/W 90-95% Vital Signs ROUTINE VITALS (Q4H) Acetaminophen [Tylenol] 650 mg PO Q6H PRN Enalaprilat Dihydrate [Vasotec] 0.625 mg IV Q6H PRN Enoxaparin Sodium [Lovenox] 40 mg SUBCUT DAILY HYDROmorphone HCL [Dilaudid] 0.5 - 1 mg IV Q2H PRN Lactated Ringers [Lr 1000 ml Bag] 1,000 ml IV CONT Ondansetron HCl [Zofran] 4 mg IV Q4H PRN oxyCODONE HCL IR [Oxy Ir] 5 mg PO Q3H PRN 10/08/16 16:00 Cefazolin Sodium [Ancef] 1 gm Normal Saline Mini-Bag+ [Sodium Chloride 100 ml Mini-Bag Plus] 100 ml IV Q8H 10/08/16 17:00 Insulin Lispro [HumaLOG] See Protocol SUBCUT [facility] 10/09/16 06:00 May shower with wound uncovere POD #1 10/09/16 09:00 amLODIPine BESYLATE [Norvasc] 5 mg PO DAILY 10/09/16 Breakfast reg [Regular] [DIET] Labs on day of discharge: Labs from last 24 hours 10/09/16 06:15 WBC 12.7 H RBC 4.15 L Hgb 12.5 Hct 37.8 MCV 91.1 MCH 30.1 MCHC 33.0 RDW 12.9 Plt Count 122 L MPV 12.2 H Neutrophils % 66.9 Lymphocytes % 25.0 Eosinophils % 0.0 Basophils % 0.4 Neutrophils # 8.4 H Lymphocytes # 3.2 Monocytes 7.7 Monocytes # 1.0 Eosinophils # 0.0 Basophils # 0.1 Sodium 139 Potassium 3.9 Chloride 106 Carbon Dioxide 25 BUN 15 Creatinine 0.8 GFR Calculation Not Reportable Glucose 116 H Calcium 8.4 Total Bilirubin 0.9 AST 66 H ALT 59 H Alkaline Phosphatase 42 Total Protein 5.9 L D Albumin 3.2 L D Albumin/Globulin Ratio 1.2
[2016-10-09] MEDS: ENOXAPARIN SODIUM 40 MG/0.4 ML SYR SUBCUT SCH (09:20)
--- NOTE | 2016-10-13 16:22 | RADIOLOGY REPORT ---
Images of intraoperative cholangiogram from [facility] in the operating room appear unremarkable. No obstruction or filling defect is identified. IMPRESSION: Unremarkable intraoperative cholangiogram. MTDD
== END 2016-10-09 09:22 | disposition home or self-care (01) ==
LOC: ER 13:35 → IN 15:50
PROVIDERS: ADMIT Hospitalist; ATTEND Surgery
DX: K80.12 Calculus of gallbladder with acute and chronic cholecystitis without obstruction (principal); K43.2 Incisional hernia without obstruction or gangrene; K57.90 Diverticulosis of intestine, part unspecified, without perforation or abscess without bleeding; R73.02 Impaired glucose tolerance (oral); I10 Essential (primary) hypertension; I35.8 Other nonrheumatic aortic valve disorders; Z86.711 Personal history of pulmonary embolism; Z86.718 Personal history of other venous thrombosis and embolism; Z86.010 Personal history of colon polyps; M85.89 Other specified disorders of bone density and structure, multiple sites; M15.9 Polyosteoarthritis, unspecified
CPT/HCPCS: 36415; 71010; 74300; 76000; 80053; 85025; 85610; 93041; 96361; 96365; 96366; 96372; 96374; 96375; 96376; 99285; G0378; J0690; J1100; J1170; J1650; J1815; J2405; J2710; J2765; J7120